=== PATIENT | male | born 1990 | race Two or more races ===

== ENCOUNTER 2024-07-24 19:33 | Emergency (ER) | payer OTHER, SELFPAY ==
[2024-07-24 19:37] VITALS: BP 130/84
[2024-07-24 19:58] LABS: % Basophils 0.4 % (0-2); % Eosinophils 0.6 % (0-6); % Immature Granulocytes 0.4 % (0-0.5); % Monocytes 9.8 % (1.7-9.3); % Neutrophils 56.8 % (42.2-75.2); Absolute Lymphocytes 2.2 10^3/uL (1.2-3.4); Absolute Monocytes 0.7 10^3/uL (0.1-0.6); Absolute Neutrophils 3.9 10^3/uL (1.4-6.5); Hematocrit 37.9 % (39.0-52.0); Hemoglobin 14.1 g/dL (13.0-18.0); Mean Corp Hgb Conc. 37.2 g/dL (33.0-37.0); Mean Corpuscular Hgb 31.6 pg (27.0-31.0); Mean Platelet Volume 10.9 fL (7.4-10.4); Nucleated Red Blood Cells % 0 % (-); Platelet Count 200 10^3/uL (130-400); Red Blood Cell Count 4.46 10^6/uL (4.70-6.10); Red Cell Dist. Width 11.6 % (11.5-14.5); White Blood Cell Count 6.9 10^3/uL (4.8-10.8)
[2024-07-24 20:23] LABS: Blood Urea Nitrogen 7 mg/dl (9-20); Calcium 9.2 mg/dl (8.4-10.2); Carbon Dioxide 28 mmol/L (22-30); Chloride 95 mmol/L (98-107); Glucose 164 mg/dl (70-99); Sodium 134 mmol/L (135-145); eGFR > 60.00
[2024-07-24 20:24] LABS: Alcohol None Detected
[2024-07-24 20:30] LABS: Amphetamines Negative (Negative); Barbiturates Negative (Negative); Benzodiazepines Positive (Negative); Buprenorphine Negative (Negative); Cocaine Negative (Negative); Marijuana Positive (Negative); Methadone Negative (Negative); Methamphetamines Negative (Negative); Opiates Negative (Negative); Phencyclidine Negative (Negative); Tricyclic Antidepressants Negative (Negative)
[2024-07-24 20:40] LABS: Fentanyl, Urine Negative (Negative)
[2024-07-24] MEDS: KCL 40 MEQ PO (21:50)
--- NOTE | 2024-07-24 22:19 | EDRN ---
Crisis in seeing patient, plan is for outpatient therapy.
--- NOTE | 2024-07-25 02:59 | ED.GENMED ---
History of Present Illness
General
Chief Complaint: Crisis Evaluation
Source: patient and family (Brother)
Exam Limitations: none
Time Seen by Provider: 07/24/24 21:33
Nursing documentation reviewed up to this point in time: agreed with
History of Present Illness
History of Present Illness:
33-year-old male with a past medical history of anxiety and depression presents to the ER with his brother for evaluation of 'feeling overwhelmed.' Patient reports that he has had increasing anxiety and depression over the past month or 2.
Apparently his dog unfortunately recently and then a few weeks later he broke up with his long-term girlfriend. As a result of this break-up he had to move back in with his mother and he just moved in recently. All of these things have
contributed to worsening mood and feeling of being overwhelmed. He says that today he was speaking with his uncle on the phone and he says that his uncle recommended he come to the emergency to be evaluated. He describes that he has had more of a
passive wish and suicidal ideation�he says that 'sometimes I feel like I have nothing to live for.' He denies any active thoughts of suicide or plan. Denies any homicidal ideation. Denies any hallucinations. He says that he occasionally
smokes marijuana but denies any other drug use. He denies any alcohol use. He denies any physical complaints and feels generally well here.
Review of Systems
Review of Systems
All Other Systems: ROS reviewed and negative except as documented in HPI and ROS
Psychiatric: Reports depression and anxiety; Denies suicidal or hallucinations
Phy Exam
Physical Exam
Physical Exam:
General: Well appearing and non-toxic
HEENT: protecting airway
Neck: appears supple
CV: No evidence of cyanosis
Resp: No accessory muscle use
Abd: Non-distended
Extremities: No deformities
Neuro: Alert
Psych: Anxious mood, normal affect
Skin: Intact
Scores
Heart Failure Risk
Heart Failure Risk Score: Not Applicable
Heart Score for Chest Pain Patients
STEMI patient?: Not applicable
Withdrawal Assessment of Alcohol
Withdrawal Assessment Completed?: Not applicable
Course
Orders/Labs/Results
Orders:
Orders
07/24/24 19:43
Crisis Consult Urgent
Reason for Consult: DEPRESSION
07/24/24 19:51
Alcohol Urgent
Basic Metabolic Panel Urgent
Complete Blood Count/With Diff Urgent
Fentanyl, Urine Urgent
Urine Drug Abuse Screen Urgent
Date Specimen was Collected: 07/24/24
Time Specimen was Collected: 19:43
07/24/24 21:40
Encourage PO Hydration-Treatme ONCE
Potassium Chloride [KCl] 40 meq PO NOW STA
Abnormal Lab Results
07/24/24
19:51
RBC 4.46 L 10^6/uL
(4.70-6.10)
Hct 37.9 L %
(39.0-52.0)
MCH 31.6 H pg
(27.0-31.0)
MCHC 37.2 H g/dL
(33.0-37.0)
MPV 10.9 H fL
(7.4-10.4)
Absolute Monos (auto) 0.7 H 10^3/uL
(0.1-0.6)
Monocytes % 9.8 H %
(1.7-9.3)
Sodium 134 L mmol/L
(135-145)
Potassium 3.0 L mmol/L
(3.5-5.1)
Chloride 95 L mmol/L
(98-107)
BUN 7 L mg/dl
(9-20)
Creatinine 0.6 L mg/dL
(0.7-1.3)
Glucose 164 H mg/dl
(70-99)
U Benzodiazepines Scrn Positive H
(Negative)
U Marijuana (THC) Screen Positive H
(Negative)
07/24/24 19:51
07/24/24 19:51
Vital Signs
Initial and Last Documented VS:
Initial Vital Signs
Temp Pulse Resp BP Pulse Ox
36.6 C 100 20 130/84 100
07/24/24 19:37 07/24/24 19:37 07/24/24 19:37 07/24/24 19:37 07/24/24 19:37
Last Documented Vital Signs
Temp Pulse Resp BP Pulse Ox
36.6 C 100 20 130/84 100
07/24/24 19:37 07/24/24 19:37 07/24/24 19:37 07/24/24 19:37 07/24/24 19:37
MDM/Problems Addressed
Differential Diagnosis Includes:
Depression/anxiety, grief
MDM/Problems Addressed:
33-year-old male presents to the ER for evaluation of depression and anxiety and passive wish. Vitals and exam as above. He had labs sent in triage including a CBC and a CMP�CMP shows mild hypokalemia�I discussed this with the patient
advised to increase potassium intake and follow-up with PCP. We did provide potassium supplementation here. Regarding his chief complaint which is depression and passive wish�crisis evaluated patient and patient wishes to pursue intensive
outpatient psychiatric treatment. He feels very comfortable this plan. In my judgment he is not actively suicidal and there is no indication for involuntary inpatient treatment at this point in time. Advised to return if he feels symptoms are
worsening. All questions answered.
Chronic conditions affecting care:
Depression and anxiety
Acute Exacerbation and/or Progression of Chronic Illness:
Acute hypokalemia treated with potassium
*Pulse Oximetry
Patient hypoxic: no
*Critical Care Note
Total Time (30-74mins, 75-104mins- exclusive of procedures): Not Applicable
Data Reviewed
Source: patient and family (Brother)
Patient Management
Discussion with other providers: Director Auto (Discussed with crisis staff)
ED Attending Note
-
Portions of this chart may have been created with voice recognition software.� Occasional wrong word or��sound alike� substitutions may have occurred due to the inherent limitations of voice recognition software.
Discharge Plan
Departure
Patient Disposition: Home (Routine Discharge)
Date of Disposition: 07/24/24
Time of Disposition: 22:43
Patient with high blood pressure during this ER visit?: No
Discharge Problem:
Depression, Hypokalemia
Instructions: Hypokalemia, Depression, Adult (DC)
Activity Restrictions/Additional Instructions:
Thank you for visiting the Emergency Department at [facility].
1. Please schedule a follow up appointment as directed. Call first thing tomorrow morning to make an appointment.
2. If indicated, please take your medications as instructed and indicated on discharge paperwork.
3. If any of your symptoms do not improve, or persist, or become more severe within 6-12 hours, please return to the emergency department for further care.
4. Please return to the emergency department if you develop a headache, neck pain/stiffness, fever greater than 100.4F, chest pain, shortness of breath, persistent nausea, vomiting, slurred speech, difficulty walking, numbness/tingling, weakness,
signs of infection or any other symptoms that are worrisome to you.
Please call [phone] if you have any questions.
Interventions
Interventions:
*Risk Screen - Suicide Last Done: 07/24/24 19:37
*General Assessment Last Done: 07/24/24 23:01
*Neglect/Abuse Screening Last Done: 07/24/24 19:37
ED- Fall Risk Assessment Last Done: 07/24/24 22:26
*ED COVID-19 Vaccine History Last Done: 07/24/24 23:01
*Nursing Disposition Last Done: 07/24/24 23:01
ED-Psychological Assessment Last Done: 07/24/24 22:26
Discharge Date and Time
Discharge Date/Time: 07/24/24 23:02
Print Language: MALTESE
== END 2024-07-24 23:02 | disposition home or self-care (01) ==
LOC: EMR 19:33
PROVIDERS: EMERGENCY PHYSICIAN Emergency Medicine
DX: F32.A Depression, unspecified (principal); E87.6 Hypokalemia; F41.9 Anxiety disorder, unspecified; F12.90 Cannabis use, unspecified, uncomplicated
CPT/HCPCS: 99283; 80048; 80306; 80307; 82077; 85025